=== PATIENT | female | born 1955 | race Caucasian/White ===

== ENCOUNTER 2021-05-14 09:07 | Outpatient (CLI) | payer OTHER, SELFPAY ==
--- NOTE | ~2021-05-14 | XR_ITS ---
EXAMINATION: XR chest 2V DATE: 05/14/2021 09:40 INDICATION: Tobacco use, right breast pain TECHNIQUE: PA and lateral views of the chest are obtained. COMPARISON: None available FINDINGS: An airspace opacity is present in the right lung apex. There is scarring of the lung apices . There is no pleural effusion or pneumothorax. The cardiomediastinal silhouette is normal. There is moderate thoracic spondylosis. IMPRESSION: 1. Airspace opacity of the right lung apex which could reflect scarring however malignancy could have a similar appearance. Comparison with prior imaging or further evaluation with CT of the chest is re commended. These findings and recommendations were discussed with the office of Dr. Hayes at 1115 ho urs on 05/14/2021. Reviewed, dictated and finalized at location B. IMPRESSION: 1. Airspace opacity of the right lung apex which could reflect scarring however malignancy could have a similar appearance. Comparison with prior imaging or f urther evaluation with CT of the chest is recommended. These findings and recom mendations were discussed with the office of Dr. Hayes at 1115 hours on 021.
== END 2021-05-14 09:08 | disposition home or self-care (01) ==
DX: Z72.0 Tobacco use (principal); R91.8 Other nonspecific abnormal finding of lung field
CPT/HCPCS: 71046

== ENCOUNTER 2021-05-28 09:13 | Outpatient (CLI) | payer OTHER, SELFPAY ==
--- NOTE | ~2021-05-28 | CT_ITS ---
EXAMINATION: CT diagnostic chest w con EXAM DATE: 05/28/2021 10:29 INDICATION: Abnormal finding on CXR. TECHNIQUE: Spiral CT of the chest following intravenous injection of 75 mL Omnipaque 350. Axial, cor onal and sagittal images of the chest were reviewed. Coronal maximum intensity pixel images of chest reviewed. The dose-length product (DLP) for this examination was 138.33 mGy-cm. The exposure was t ailored according to patient size (auto mA exposure control), and iterative reconstruction (ASIR) was used as additional dose reduction technique. Correlation is made to chest x-ray 05/14/2021. FINDINGS: There is moderate emphysema and hyperinflation. Mild bronchiectasis. Biapical opacities ar e predominantly linear and most consistent with scarring. There are no pleural or pericardial effusi ons. Tracheobronchial tree is patent. There is no mediastinal, hilar or axillary lymphadenopathy. There is no pneumothorax. Heart normal in size. There is mild coronary arterial calcification, arterial sclerosis. Upper abdomen is unremarkable. There is thoracic spondylosis without osteobla stic or osteolytic lesions identified. IMPRESSION: 1. Biapical opacities likely scarring. 2. Moderate emphysema and hyperinflation. Reviewed, dictated and finalized at location A.
[2021-05-28 10:24] LABS: Estimated Glomerular Filt Rate 56
== END 2021-05-28 09:14 | disposition home or self-care (01) ==
DX: R93.89 Abnormal findings on diagnostic imaging of other specified body structures (principal); J43.9 Emphysema, unspecified; R91.8 Other nonspecific abnormal finding of lung field
CPT/HCPCS: 71260; Q9967

== ENCOUNTER 2021-09-11 08:08 | Outpatient (CLI) | payer OTHER, SELFPAY ==
--- NOTE | ~2021-09-11 | XR_ITS ---
EXAMINATION: XR hip RT min 2V DATE: 09/11/2021 08:32 INDICATION: Right hip pain. TECHNIQUE: 2 views of right hip were obtained. COMPARISON: None. FINDINGS: Bone alignment is normal. No fracture. There is mild right hip osteoarthritis. IMPRESSION: 1. Mild right hip osteoarthritis. Reviewed, dictated and finalized at location A.
--- NOTE | ~2021-09-11 | XR_ITS ---
EXAMINATION: XR lumbar spine 2-3V DATE: 09/11/2021 08:32 INDICATION: Right hip pain TECHNIQUE: Anteroposterior and lateral views of the lumbar spine, and cone-down lateral view of the l umbosacral junction were obtained. COMPARISON: None. FINDINGS: There is no fracture, dislocation, or subluxation. The vertebral body heights, alignment, a nd intervertebral disc spaces are normal. There is mild facet osteoarthritis of the lower lumbar spin e. The bowel gas pattern is normal. There are phleboliths of the pelvis. Calcified atherosclerosis is noted. IMPRESSION: 1. Mild lumbar spondylosis without acute findings. Reviewed, dictated and finalized at location A.
== END 2021-09-11 08:09 | disposition home or self-care (01) ==
LOC: ANHIMG 08:12
PROVIDERS: PCP Family Medicine; Visit Provider Nurse Practitioner Family
DX: M54.40 Lumbago with sciatica, unspecified side (principal); M47.896 Other spondylosis, lumbar region; M16.11 Unilateral primary osteoarthritis, right hip
CPT/HCPCS: 72100; 73502

== ENCOUNTER 2022-02-28 09:05 | Outpatient (CLI) | payer OTHER, SELFPAY ==
--- NOTE | ~2022-02-28 | CT_ITS ---
EXAMINATION: CT abdomen pelvis w con DATE: 02/28/2022 09:27 INDICATION: Gastroenteritis and colitis. Diarrhea. TECHNIQUE: Computed tomography (CT) of the abdomen and pelvis was performed with 100 mL Omnipaque 350 intravenous contrast. Automated exposure control and iterative reconstruction technique were employe d. The dose-length product was 263.07 mGy-cm. COMPARISON: None. FINDINGS: The visualized portions of the lung bases demonstrate emphysema and minimal atelectasis. No pleural effusion. There is a small sliding hiatal hernia. The liver, gallbladder, spleen, pancreas, adrenal glands, and kidneys are normal. There is calcified atherosclerosis of the aorta and many of t he other arteries. There is mild stenosis of celiac axis and superior mesenteric artery. There is no significant stenosis of the renal arteries. There is total occlusion of right common iliac artery wit h reconstitution in right external iliac artery. There is severe stenosis of proximal left superficia l femoral artery. There are no dilated loops of bowel. The appendix is not visualized. There are no p athologically enlarged lymph nodes. There is no free intraperitoneal fluid. There is mild lumbar spon dylosis. IMPRESSION: 1. Small sliding hiatal hernia. 2. Peripheral arterial disease. Reviewed, dictated and finalized at location A.
[2022-02-28 09:23] LABS: Estimated Glomerular Filt Rate > 60
== END 2022-02-28 09:06 | disposition home or self-care (01) ==
PROVIDERS: PCP Family Medicine; Visit Provider Nurse Practitioner Adult Health
DX: K52.9 Noninfective gastroenteritis and colitis, unspecified (principal); K44.9 Diaphragmatic hernia without obstruction or gangrene; I73.9 Peripheral vascular disease, unspecified
CPT/HCPCS: 74177; Q9967

== ENCOUNTER 2022-04-15 09:22 | Outpatient (CLI) | payer OTHER, SELFPAY ==
--- NOTE | ~2022-04-15 | CT_ITS ---
EXAMINATION: CT hip RT wo con DATE: 04/15/2022 09:50 INDICATION: Right hip pain. Right hip bursitis. TECHNIQUE: Computed tomography (CT) of the right hip was performed without intravenous contrast. Auto mated exposure control and iterative reconstruction technique were employed. The dose-length product was 157.95 mGy-cm. COMPARISON: Right hip radiographs 09/11/2021 FINDINGS: Bone alignment is normal. No fracture. There is a benign bone island in right femoral head. There is mild right hip osteoarthritis. The musculature is normal. IMPRESSION: 1. Mild right hip osteoarthritis. Reviewed, dictated and finalized at location A.
--- NOTE | ~2022-04-15 | CT_ITS ---
EXAMINATION: CT lumbar spine wo con DATE: 04/15/2022 09:49 INDICATION: Lumbar spondylosis. Right hip pain. TECHNIQUE: Computed tomography (CT) of the lumbar spine was performed without intravenous contrast. A utomated exposure control and iterative reconstruction technique were employed. The dose-length produ ct was 311.01 mGy-cm. COMPARISON: Lumbar spine radiograph 09/11/2021 FINDINGS: Bone alignment is normal. Vertebral body heights and intervertebral disc heights are normal . The following disc levels are specifically discussed: L1-L2: The disc does not extend beyond the endplate margin. There is mild bilateral facet joint osteo arthritis. There is no neural foraminal stenosis. There is no central canal stenosis. L2-L3: The disc is bulging. There is mild bilateral facet joint osteoarthritis. There is mild bilater al neural foraminal stenosis. There is no central canal stenosis. L3-L4: The disc is bulging. There is mild bilateral facet joint osteoarthritis. There is mild bilater al neural foraminal stenosis. There is mild central canal stenosis. L4-L5: The disc is bulging. There is severe right and mild left facet joint osteoarthritis. There is mild bilateral neural foraminal stenosis. There is mild central canal stenosis. L5-S1: The disc is bulging. There is moderate right and severe left facet joint osteoarthritis. There is mild bilateral neural foraminal stenosis. There is mild central canal stenosis. IMPRESSION: 1. Mild lumbar spondylosis. Reviewed, dictated and finalized at location A. IMPRESSION: 1. Mild lumbar spondylosis.
== END 2022-04-15 09:23 | disposition home or self-care (01) ==
LOC: ANHIMG 09:24
PROVIDERS: PCP Family Medicine; Visit Provider Nurse Practitioner Adult Health
DX: M70.71 Other bursitis of hip, right hip (principal); M16.11 Unilateral primary osteoarthritis, right hip; M47.896 Other spondylosis, lumbar region
CPT/HCPCS: 72131; 73700